=== PATIENT | male | born 1945 | race Caucasian/White ===

== ENCOUNTER 2017-01-09 11:15 | Emergency (ER) | payer OTHER ==
--- NOTE | 2017-01-09 11:40 | EDM.PDOC ---
[id number] 4d CHRISSIE DELGADO LOW BLOOD SURGAR Time Seen by Provider: 01/09/17 11:40 Source of Information: Reports: Patient History Limitations: Reports: No Limitations - History of Present Illness INITIAL COMMENTS - FREE TEXT/NARRATIVE: 71-year-old male attends the ED after developing acute onset of severe rigors and chills with associated goosebumps. He was admitted large at the time and thought that the scar straw was just too cold. She went out to the parking lot started his vehicle turned on the heater. Days by the time he got home he was shaking so bad he can hardly operate his cell phone to call the appropriate number for help. Recently bee did show up. His daughter then was called and she brought him to the ED. He felt well this morning other than sleeping in an extra hour. Denies sore throat cough or sputum production no pulse passing his water no diarrhea. In infections. Has had previous total prostate[facility] about 6 years ago [facility] He reports PSAs up and around 0.3 -0.4. Denies having a headache. States his hands and fingers still feel cold. Onset: Today Onset Date: 01/09/17 Onset Time: 10:30 Duration: Minutes: Location: Reports: Generalized (Generalized Reiger's without any obvious source of infection evident.) Quality: Reports: Other Severity: Severe (Sudden onset of severe rigors this morning.) Improves with: Reports: None Worsens with: Reports: None Context: Denies: Activity, Exercise, Lifting, Sick Contact, Trauma, Other Associated Symptoms: Reports: Malaise, Weakness. Denies: Confusion, Chest Pain , Cough, cough w sputum, Nausea/Vomiting, Rash, Seizure, Shortness of Breath, Syncope Treatments SCALDER: Reports: Other (see below) (None.) - Related Data Allergies Allergy/AdvReac Type Severity Reaction Status Date / Time ciprofloxacin [From Cipro] Allergy Nausea Verified 01/09/17 12:12 Home Meds: Home Meds Amoxicillin/Clavulanate K [Augmentin 500 MG\\125 MG] 1 tab PO Q12HR #20 tablet [Rx] Aspirin 81 mg PO DAILY 01/09/17 [History] Doxycycline [Vibramycin] 100 mg PO Q12HR #20 tablet 01/09/17 [Rx] Fluvastatin Sodium 20 mg PO BEDTIME 01/09/17 [History] Lisinopril 20 mg PO BID 01/09/17 [History] Meloxicam 7.5 mg PO DAILY 01/09/17 [History] amLODIPine Besylate [Amlodipine Besylate] 0 mg PO DAILY 01/09/17 [History] Past Medical History Musculoskeletal History: Reports: Osteoarthritis (Lower back knees and hips neck at times.), Other (See Below) (Patient has shrapnel wounds to his left forearm and his chest from being in [place]. They also exposed to agent orange while he was there.) Oncologic (Cancer) History: Reports: Prostate (Prostatic cancer diagnosed about 6 years ago. Underwent total prostatectomy and so far his PSAs have been below 0.4. He remains somewhat incontinent of urine.) Social & Family History - Tobacco Use Smoking Status *Q: Former Smoker (Quit smoking 13 years ago.) - Alcohol Use Alcohol Use History: Yes Days Per Week of Alcohol Use: 4 ED ROS GENERAL - Review of Systems Review Of Systems: See Below Constitutional: Reports: Fever, Chills (See history of present illness with rigors today). Denies: Weakness, Fatigue, Decreased Appetite, Weight Loss HEENT: Reports: Other (Feels his throat a little sore.) Respiratory: Reports: No Symptoms. Denies: Cough, Sputum Cardiovascular: Reports: No Symptoms Endocrine: Reports: No Symptoms GI/Abdominal: Reports: No Symptoms : Reports: Incontinence (Mild since prosthetic surgery 6 years ago. No dysuria.) Musculoskeletal: Reports: Back Pain, Joint Pain (Chronically knees and hips.) Skin: Reports: No Symptoms, Other (Had his toenail resected completely on the left great toe and the wound is healing completely normally with no signs of infection.) Neurological: Reports: No Symptoms Psychiatric: Reports: No Symptoms Hematologic/Lymphatic: Reports: No Symptoms Immunologic: Reports: No Symptoms ED EXAM, SEPSIS - Physical Exam Exam: See Below Exam Limited By: No Limitations General Appearance: Alert, WD/WN, No Apparent Distress Eye Exam: Bilateral Eye: Normal Inspection (No jaundice.) Throat/Mouth: Normal Inspection, Normal Lips, Normal Teeth, Normal Gums, Normal Oropharynx Head: Atraumatic, Normocephalic Neck: Normal Inspection, Supple, Non-Tender, Full Range of Motion, Other (Some crepitus in the neck on lateral rotation.). No: Lymphadenopathy (L), Lymphadenopathy (R) Respiratory/Chest: Lungs Clear (Mild tachypnea at rest.), Normal Breath Sounds, No Accessory Muscle Use, Chest Non-Tender, Respiratory Distress Cardiovascular: Normal Peripheral Pulses, Regular Rate, Rhythm, No Edema, No Gallop, No Murmur Peripheral Pulses: 2+: Posterior Tibial (L), Posterior Tibial (R), Dorsalis Pedis (L), Dorsalis Pedis (R) GI/Abdominal Exam: Normal Bowel Sounds, Soft, Non-Tender, No Organomegaly, No Distention Back: Normal Inspection, Full Range of Motion. No: CVA Tenderness (L), CVA Tenderness (R) Extremities: Normal Inspection, Normal Range of Motion, Non-Tender, No Pedal Edema, Other (Hands" both quite cool but capillary refill is 1-2 seconds.). No : Normal Capillary Refill Neurological: Alert, Oriented, CN II-XII Intact, Normal Cognition, Normal Gait, Normal Reflexes, No Motor/Sensory Deficits Psychiatric: Normal Affect, Normal Mood Skin: Warm, Dry, Intact, Normal Color, No Rash EKG INTERPRETATION EKG Date: 01/09/17 Time: 12:40 Rhythm: NSR Rate (Beats/Min): 97 [place]: Normal P-Wave: Present QRS: Normal ST-T: Normal QT: Normal Course - Vital Signs Last Recorded V/S: Last Vital Signs Temp 36.6 C 01/09/17 16:05 Pulse 71 01/09/17 16:05 Resp 16 01/09/17 16:05 BP 108/58 L 01/09/17 16:05 Pulse Ox 99 01/09/17 16:05 - Orders/Labs/Meds Orders: Active Orders 24 hr Category Date Time Status EKG Documentation Completion [RC] STAT Care 01/09/17 12:38 Active CULTURE BLOOD [BC] Stat Lab 01/09/17 12:32 Received CULTURE BLOOD [BC] Stat Lab 01/09/17 12:45 Received Blood Culture x2 Reflex Set [OM.PC] Stat Oth 01/09/17 11:56 Ordered Labs: Laboratory Tests 01/09/17 01/09/17 01/09/17 Range/Units 11:38 11:40 11:40 WBC 12.67 H (4.23-9.07) K/mm3 RBC 5.08 (4.63-6.08) M/mm3 Hgb 15.2 (13.7-17.5) gm/L Hct 45.0 (40.1-51.0) % MCV 88.6 (79.0-92.2) fl MCH 29.9 (25.7-32.2) pg MCHC 33.8 (32.2-35.5) g/dl RDW Std Deviation 41.5 (35.1-43.9) fL Plt Count 172 (163-337) K/mm3 MPV 9.3 L (9.4-12.3) fl Neutrophils % (Manual) 88 H (40-60) % Band Neutrophils % 1 (0-10) % Lymphocytes % (Manual) 9 L (20-40) % Atypical Lymphs % 0 % Monocytes % (Manual) 2 (2-10) % Eosinophils % (Manual) 0 L (0.8-7.0) % Basophils % (Manual) 0 L (0.2-1.2) Platelet Estimate Adequate RBC Morph Comment Normal Sodium (136-145) mEq/L Potassium (3.5-5.1) mEq/L Chloride (98-107) mEq/L Carbon Dioxide (21-32) mEq/L Anion Gap (5-15) BUN (7-18) mg/dL Creatinine (0.7-1.3) mg/dL Est Cr Clr Drug Dosing mL/min Estimated GFR (MDRD) (>60) mL/min BUN/Creatinine Ratio (14-18) Glucose (83-115) mg/dL POC Glucose 88 (83-110) mg/dL Lactic Acid (0.4-2.0) mmol/L Calcium (8.5-10.1) mg/dL Magnesium 1.9 (1.8-2.4) mg/dl Total Bilirubin (0.2-1.0) mg/dL AST (15-37) U/L ALT (16-63) U/L Alkaline Phosphatase (46-116) U/L C-Reactive Protein < 0.2 (<1.0) mg/dL Total Protein (6.4-8.2) g/dl Albumin (3.4-5.0) g/dl Globulin gm/dL Albumin/Globulin Ratio (1-2) Urine Color (Yellow) Urine Appearance (Clear) Urine pH (5.0-8.0) Ur Specific [place] (1.005-1.030) Urine Protein (Negative) Urine Glucose (UA) (Negative) Urine Ketones (Negative) Urine Occult Blood (Negative) Urine Nitrite (Negative) Urine Bilirubin (Negative) Urine Urobilinogen (0.2-1.0) Ur Leukocyte Esterase (Negative) Urine RBC (0-5) /hpf Urine WBC (0-5) /hpf Ur Epithelial Cells (0-5) /hpf Urine Bacteria (FEW) /hpf Urine Mucus (FEW) /hpf 01/09/17 01/09/17 01/09/17 Range/Units 11:40 12:45 14:25 WBC (4.23-9.07) K/mm3 RBC (4.63-6.08) M/mm3 Hgb (13.7-17.5) gm/L Hct (40.1-51.0) % MCV (79.0-92.2) fl MCH (25.7-32.2) pg MCHC (32.2-35.5) g/dl RDW Std Deviation (35.1-43.9) fL Plt Count (163-337) K/mm3 MPV (9.4-12.3) fl Neutrophils % (Manual) (40-60) % Band Neutrophils % (0-10) % Lymphocytes % (Manual) (20-40) % Atypical Lymphs % % Monocytes % (Manual) (2-10) % Eosinophils % (Manual) (0.8-7.0) % Basophils % (Manual) (0.2-1.2) Platelet Estimate RBC Morph Comment Sodium 136 (136-145) mEq/L Potassium 4.2 (3.5-5.1) mEq/L Chloride 100 (98-107) mEq/L Carbon Dioxide 28 (21-32) mEq/L Anion Gap 12.2 (5-15) BUN 18 (7-18) mg/dL Creatinine 1.2 (0.7-1.3) mg/dL Est Cr Clr Drug Dosing 50.95 mL/min Estimated GFR (MDRD) 60 (>60) mL/min BUN/Creatinine Ratio 15.0 (14-18) Glucose 87 (83-115) mg/dL POC Glucose (83-110) mg/dL Lactic Acid 1.1 (0.4-2.0) mmol/L Calcium 8.9 (8.5-10.1) mg/dL Magnesium (1.8-2.4) mg/dl Total Bilirubin 0.9 (0.2-1.0) mg/dL AST 26 (15-37) U/L ALT 23 (16-63) U/L Alkaline Phosphatase 86 (46-116) U/L C-Reactive Protein (<1.0) mg/dL Total Protein 7.7 (6.4-8.2) g/dl Albumin 4.3 (3.4-5.0) g/dl Globulin 3.4 gm/dL Albumin/Globulin Ratio 1.3 (1-2) Urine Color Yellow (Yellow) Urine Appearance Clear (Clear) Urine pH 6.0 (5.0-8.0) Ur Specific [place] 1.020 (1.005-1.030) Urine Protein Negative (Negative) Urine Glucose (UA) Negative (Negative) Urine Ketones Trace H (Negative) Urine Occult Blood Trace-lysed H (Negative) Urine Nitrite Negative (Negative) Urine Bilirubin Negative (Negative) Urine Urobilinogen 0.2 (0.2-1.0) Ur Leukocyte Esterase Negative (Negative) Urine RBC Not seen (0-5) /hpf Urine WBC 0-5 (0-5) /hpf Ur Epithelial Cells 0-5 (0-5) /hpf Urine Bacteria Rare (FEW) /hpf Urine Mucus Not seen (FEW) /hpf Meds: Medications Discontinued Medications Generic Name Dose Route Start Last Admin Trade Name Freq PRN Reason Stop Dose Admin Sodium Chloride 1,000 mls @ 150 mls/hr 01/09/17 12:00 01/09/17 12:17 Normal Saline IV 150 mls/hr ASDIRECTED ATILIO Administration Ceftriaxone Sodium 2 gm/ 100 mls @ 200 mls/hr 01/09/17 13:05 01/09/17 13:13 Sodium Chloride IV 01/09/17 13:34 200 mls/hr ONETIME ONE Administration Ibuprofen 600 mg 01/09/17 11:58 01/09/17 12:18 Motrin PO 01/09/17 11:59 600 mg ONETIME ONE Administration - Radiology Interpretation Free Text/Narrative:: 71-year-old male presents to the ED with acute onset of rigors at about 10:00 this morning while he was in [employer]. By the time he got home he could hardly operate his cell phone he was shaking so bad. This suggests severe bacteremia. He is now developing a fever of 99.9 initially and it's gone up to 101.6. No obvious source of infection is apparent on examination. Denies cough or sputum production. Does feel like his throat is a bit sore. No however on inspection there was no erythema or exudate. No cervical adenopathy. Benign abdominal examination. He's had previous total prostatectomy and has some incontinence of urine making him somewhat at risk of a urinary tract source of infection. Integument appeared to be intact. Workup including lactic acid. Blood cultures 2. Two-view chest x-ray to be obtained. Will give Motrin 600 mg aspirin or for fever relief. IV will be D5 normal saline at 150 mils per hour. - Re-Assessments/Exams Free Text/Narrative Re-Assessment/Exam: 01/09/17 13:56 Labs are back. White count is 12.67 with a left shift of 88% neutrophils and 1% band cells. Hemoglobin is 15.2 with hematocrit of 45.0. MCV normal. Chemistry shows a sodium of 136 potassium 4.2. Anion gap is 12.2. BUNs 18 crowding 1.2 EGFR is greater than 60. Glucose was 87. Magnesium is normal 1.9. Liver function normal C-reactive protein is less than 0.2 with this time. Thick acid is 1.1. Two-view chest x-ray was also within normal limits showing no sign of any active infection. I have given him Rocephin 2 g intravenously. He did have a little to eat for dinner. Urinalysis not yet available. 01/09/17 15:16 urinalysis is also normal. Therefore the source of his bacteremia is not evident. He has a benign abdomen on repeat examination. Patient would like to try things at home versus coming into the hospital. We'll await his blood cultures which should be back in 24 hours. I therefore will discharge him home on Augmentin 500/125 mg tablet twice a day for 10 days in addition to doxycycline 100 mg twice daily for 10 days as well. He will continue Motrin 600 mg every 6 hours needed for fever relief. He is to return to the hospital if he develops any more rigors or chills or any nausea vomiting etc. Departure - Departure Time of Disposition: 15:43 Disposition: Home, Self-Care 01 Condition: Fair Clinical Impression: Acute febrile illness, Systemic infection - Discharge Information Prescriptions: Amoxicillin/Clavulanate K [Augmentin 500 MG\\125 MG] 1 tab PO Q12HR #20 tablet Doxycycline [Vibramycin] 100 mg PO Q12HR #20 tablet Instructions: Fever, Adult, [id number] Referrals: Ca Alan DO [Primary Care Provider] - Forms: ED Department Discharge Additional Instructions: Evaluation in the emergency room today in regards to sudden onset of high fever preceded by riders and severe chills. This means bacteria leaked into the bloodstream from an unclear source. Workup today revealed a mildly elevated white blood cell count with a left shift suggesting an infective process is certainly onboard. He did develop a fever as high as 101.2 within an hour coming to the emergency room. Chest x-ray is normal urinalysis proved to be normal there is no sign of any significant skin infection and benign abdominal examination. Therefore the source of infection is not clear. Perhaps the blood cultures that were done will grow out a pathogen in the next 24 hours. If it does so I will be calling you to make sure we are you are on the right antibiotics. In the meantime you did receive a dose of antibiotic in the emergency room: Rocephin 2 g were given intravenously. Suggest use of Motrin 600 mg every 6 hours as needed to reduce fever and/or body aches. Antibiotic is to be doxycycline 100 mg twice daily for 10 days with Augmentin 500 mg twice daily for 10 days as well. One tablet of each should be taken tonight before bed. Make sure you finish all of the antibiotics. Return to the emergency room or medical care if you develop any similar type problems in the next 24 hours. Otherwise follow-up with her personal care physician in 10 days' time. - My Orders Last 24 Hours: My Active Orders 01/09/17 11:56 Blood Culture x2 Reflex Set [OM.PC] Stat 01/09/17 12:32 CULTURE BLOOD [BC] Stat 01/09/17 12:38 EKG Documentation Completion [RC] STAT 01/09/17 12:45 CULTURE BLOOD [BC] Stat - Assessment/Plan Last 24 Hours: My Active Orders 01/09/17 11:56 Blood Culture x2 Reflex Set [OM.PC] Stat 01/09/17 12:32 CULTURE BLOOD [BC] Stat 01/09/17 12:38 EKG Documentation Completion [RC] STAT 01/09/17 12:45 CULTURE BLOOD [BC] Stat
[2017-01-09] MEDS ORDERED: Ibuprofen 600 MG Tab PO ONE (11:58)
[2017-01-09] MEDS ORDERED: Sodium Chloride 0.9% 1,000 ML IV SCH (12:00)
[2017-01-09] MEDS ORDERED: cefTRIAXone 2 GM in Sodium Chloride 0.9% 100 ML IV ONE (13:05)
--- NOTE | 2017-01-09 16:08 | CR ---
Chest: Two views of the chest were obtained. Comparison: No previous chest x-ray. Small nodule identified within the left lung base. This measures about 7 mm in size. This does not appear to be calcified. Lungs otherwise are clear. Heart size and mediastinum are normal. Bony structures appear within normal limits for the patient's age. Several calcifications seen overlying the right scapula possibly due to calcified lymph nodes. Diffuse disc space narrowing seen throughout the thoracic spine. Impression: 1. 7 mm nodule within the left lung base. Uncertain if this is due to a nipple density or pulmonary nodule. Repeat PA view with nipple markers could be obtained to further evaluate. 2. Nothing acute is otherwise seen on two-view chest x-ray. Diagnostic code #9
[2017-01-09 16:09] VITALS: BP 108/58
== END 2017-01-09 16:05 | disposition home or self-care (01) ==
LOC: JD.ED 11:15
DX: A41.9 Sepsis, unspecified organism (principal); R50.9 Fever, unspecified; M19.90 Unspecified osteoarthritis, unspecified site; Z88.1 Allergy status to other antibiotic agents; Z79.82 Long term (current) use of aspirin; Z79.899 Other long term (current) drug therapy; Z87.891 Personal history of nicotine dependence
CPT/HCPCS: 36415; 71020; 80053; 81001; 82962; 83605; 83735; 85025; 86140; 87040; 93005; 96361; 96365; 99284; A9270; J0696; J7030; J7040